=== PATIENT | male | born 1940 | race Caucasian/White ===

== ENCOUNTER 2017-08-17 12:10 | Emergency (ER) | payer MEDICARE ==
[2017-08-17] MEDS ORDERED: KETOROLAC TROMETHAMINE 30MG/ML ONE (12:42)
== END 2017-08-17 12:52 | disposition home or self-care (01) ==
LOC: EDH 12:10
DX: G89.29 Other chronic pain (principal); M25.511 Pain in right shoulder; I10 Essential (primary) hypertension; E11.9 Type 2 diabetes mellitus without complications; E78.5 Hyperlipidemia, unspecified; Z87.891 Personal history of nicotine dependence; Z79.4 Long term (current) use of insulin
CPT/HCPCS: 96372; 99283; J1885